=== PATIENT | male | born 1990 | race African-American/Black ===

== ENCOUNTER 2019-10-12 10:45 | Emergency (ER) | payer SELFPAY ==
--- NOTE | 2019-10-12 14:26 | RAD ---
EXAM: RIGHT HAND THREE VIEWS: 10/12/19 HISTORY: Injury from a fall yesterday with pain. There is dorsal soft tissue swelling over the metacarpal region, particularly the fifth metacarpal re gion. No evidence for acute fracture or dislocation. IMPRESSION: Dorsal soft tissue swelling without acute fracture or dislocation. If patient has persistent or worsening symptoms which do not resolve, consider short term follow-up i guy in 1-2 weeks. POS: [facility]
== END 2019-10-12 12:00 | disposition home or self-care (01) ==
LOC: ERS 10:45
DX: S63.91XA Sprain of unspecified part of right wrist and hand, initial encounter (principal); F17.210 Nicotine dependence, cigarettes, uncomplicated; W18.30XA Fall on same level, unspecified, initial encounter

== ENCOUNTER 2020-09-06 18:14 | Emergency (ER) | payer SELFPAY ==
[2020-09-06 19:31] LABS: Mean Corpuscular HGB CONC 34.5 g/dL (32.0-36.0); Mean Corpuscular Hemoglobin 31.5 pg (27.0-31.0); Mean Corpuscular Volume 91.4 fL (78.0-98.0); Mean Platelet Volume 8.1 fL (7.4-10.4); Platelet Count 277 thou/uL (130-400); RBC Distribution Width 11.9 % (11.5-14.5); Red Blood Cell (RBC) Count 4.77 mill/uL (4.70-6.10); White Blood Cell (WBC) Count 3.9 thou/uL (4.8-10.8)
[2020-09-06 19:54] LABS: Lymphocytes 30 % (21-51); MDiff Complete? YES; Monocytes 7 % (0-10); Neutrophil 62 % (42-75); Platelet Morphology Comment Appears Adequate; RBC Morphology Normal; Reactive Lymphocytes 1 % (0-10)
[2020-09-06 19:55] LABS: ALT (SGPT) 47 U/L (8-55); AST (SGOT) 28 U/L (5-34); Albumin 4.5 g/dL (3.5-5.0); Alkaline Phosphatase 70 U/L (40-110); Anion Gap 13 mmol/L (10-20); BUN (Urea Nitrogen) 11 mg/dL (8.9-20.6); Bilirubin, Total 0.8 mg/dL (0.2-1.2); Calc. Creatinine Clearance 0 mL/min (70-130); Calcium 9.1 mg/dL (7.8-10.44); Carbon Dioxide 28 mmol/L (22-29); Chloride 103 mmol/L (98-107); Globulin 3.2 g/dL (2.4-3.5); Glucose 100 mg/dL (70-105); Lipase 21 U/L (8-78); Potassium 3.5 mmol/L (3.5-5.1); Protein, Total 7.7 g/dL (6.0-8.3); Sodium 140 mmol/L (136-145)
[2020-09-06] MEDS ORDERED: Ondansetron ODT 4 MG TAB ONE (20:00)
[2020-09-06] MEDS ORDERED: Dicyclomine 20 MG TAB ONE (20:01)
== END 2020-09-06 20:54 | disposition home or self-care (01) ==
LOC: ERS 18:14
DX: A08.4 Viral intestinal infection, unspecified (principal); Z87.891 Personal history of nicotine dependence
CPT/HCPCS: 36415; 80053; 83690; 85025; 99284; Q0162

== ENCOUNTER 2023-11-26 23:33 | Emergency (ER) | payer SELFPAY | END 2023-11-27 01:05 | disposition left against medical advice (07) | LOC: ERS 23:33 | DX: Z53.21 Procedure and treatment not carried out due to patient leaving prior to being seen by health care provider (principal) ==